=== PATIENT | female | born 1960 | race Caucasian/White ===

== ENCOUNTER 2020-06-27 13:21 | Day surgery (SDC) | payer MEDICAID, SELFPAY ==
--- NOTE | 2020-06-24 13:07 | P.CONAN_ITS ---
Documented by User: Miranda Pena 06/24/20 13:10 HPI - Anesthesia Eval Consult details Narrative: 59yo F for Upper Endoscopy with Balloon Dilatation [facility] Past Medical History Medical History (Updated 06/27/20 @ 13:34 by Tran Coppola, RN) Achalasia Anxiety Depression Gastritis GERD (gastroesophageal reflux disease) Hepatitis C Migraines Panic attacks SVT (supraventricular tachycardia) Surgical History Surgical History H/O cardiac radiofrequency ablation Social History Social History Smoking Status: Current every day smoker Use of substances other than those prescribed or required for medical reasons: No Have you been hit, kicked, punched, or otherwise hurt by someone within the past year? If so, by whom?: No Advance Directives: No Recently lost weight without trying: No Meds Allergies Allergy/AdvReac Type Severity Reaction Status Date / Time prochlorperazine Allergy Intermediate Muscle Pain Verified 06/27/20 13:30 [From Compazine] acetaminophen [Tylenol] Allergy Unknown Muscle Pain Verified 06/27/20 13:30 Combivent Allergy Intermediate Muscle Pain Uncoded 06/27/20 13:30 Exam Exam Date and Time: June 24, 2020 1307 Airway Adult Head Mouth w/Numbe Teeth: 1. Broken Assessment and Plan Assessment Anesthesia Assessment: Chart Reviewed Documented by User: Mack Quan MD 06/27/20 14:14 [facility] Past Medical History Medical History (Updated 06/27/20 @ 13:34 by Tran Coppola RN) Achalasia Anxiety Depression Gastritis GERD (gastroesophageal reflux disease) Hepatitis C Migraines Panic attacks SVT (supraventricular tachycardia) Surgical History Surgical History H/O cardiac radiofrequency ablation Social History Social History Smoking Status: Current every day smoker Use of substances other than those prescribed or required for medical reasons: No Have you been hit, kicked, punched, or otherwise hurt by someone within the past year? If so, by whom?: No Advance Directives: No Recently lost weight without trying: No Meds Allergies Allergy/AdvReac Type Severity Reaction Status Date / Time prochlorperazine Allergy Intermediate Muscle Pain Verified 06/27/20 13:30 [From Compazine] acetaminophen [Tylenol] Allergy Unknown Muscle Pain Verified 06/27/20 13:30 Combivent Allergy Intermediate Muscle Pain Uncoded 06/27/20 13:30 Exam Airway Mallampati Class: II TM Dist: >3cm Neck ROM: Full Partial: Upper Adult Head Mouth w/Numbe Teeth: 1. Broken Loose/Missing/Broken Teeth: Yes Heart: rrr Lungs: nl Other: ao Assessment and Plan Assessment Anesthesia Assessment: Anesthesia Plan Discussed and Chart Reviewed Final Anesthetic Review NPO: Yes ASA Class: III Final Preanesthetic Review: No Changes in Pt Med Stat, Meds/Allgs Chart Reviewed, Consent Obtained/Reviewed and Anes Risks/Benef Reviewed Patient Risk: Intermediate Procedure Risk: Intermediate Anesthetic Plan Anesthetic Plan: MAC: Disposition: Standard PACU
[2020-06-27 13:40] VITALS: BP 143/65; PULSE 68; RESP 18; TEMP 36.8; O2SAT 98; BMI 33.7
[2020-06-27 15:07] VITALS: BP 96/52; PULSE 73; RESP 20; TEMP 36.3; O2SAT 100
[2020-06-27 15:12] VITALS: BP 104/57; PULSE 63; RESP 20; O2SAT 100
--- NOTE | 2020-06-27 15:15 | PM.OP ---
Brief Operative Note Date of procedure: 06/27/20 Pre-op diagnosis: Achalasia, Dysphagia Post-op diagnosis: other (Same, R/O Head's, Dilated and atonic esophagus) Procedure: EGD with Balloon dilation of EG Junction and biopsies. Surgeon: Jefferson Ng Anesthesia: MAC Estimated blood loss (mL): 3.0 Pathology: other (A. EG Junction at 38cm) Condition: stable Disposition: PACU
[2020-06-27 15:28] VITALS: BP 120/69; PULSE 60; RESP 18; O2SAT 100
[2020-06-27] MEDS: Acetaminophen 325 MG TABLET 650 MG PO (15:31)
--- NOTE | 2020-06-27 15:33 | OP_ITS ---
SURGEON: Jefferson Ng MD INDICATIONS: The patient presents for evaluation of underlying history of achalasia, reflux, and dysphagia. Full consent has been obtained from her for this, including risks of bleeding and perforation. PREOPERATIVE DIAGNOSIS: POSTOPERATIVE DIAGNOSIS: PROCEDURE PERFORMED: Esophagogastroduodenoscopy with balloon dilation of gastroesophageal junction, and biopsies. ESTIMATED BLOOD LOSS: COMPLICATIONS: ANESTHESIA: Monitored anesthesia care. ASSISTANTS: SPECIMENS: PREOPERATIVE DIAGNOSES: History of achalasia, gastroesophageal reflux, and dysphagia. POSTOPERATIVE DIAGNOSES: History of achalasia, gastroesophageal reflux, and dysphagia, rule out Head's esophagus. DESCRIPTION OF PROCEDURE: The patient was placed in the left lateral decubitus position. The Olympus video gastroscope was passed in the posterior oropharynx and upper esophagus under direct vision. The esophagus was dilated, somewhat tortuous, and almost absent peristalsis. There was some fluid within the esophagus, but no food. This was suctioned and removed. The scope was advanced to the gastroesophageal junction at 38 cm. This was slightly irregular, but there was no esophagitis, mass, ulceration, nor any definitive stricture. The scope easily entered into the stomach. The scope was advanced to the pylorus and duodenum cannulated to the descending portion. The duodenum including the bulb appeared normal without mass or ulceration. The scope was withdrawn back in the stomach. The gastric antrum and body appeared normal with good peristalsis. The scope was retroflexed visualizing the proximal stomach carefully which appeared normal, without mass or ulceration. There was evidence of some probable component of a fundoplication. The scope was straightened out and withdrawn back into the esophagus. Given her symptomatology and history, I did use a [employer] incremental balloon to dilate the gastroesophageal junction from 18 to 20 mm at the recommended pressure for 60 seconds each. Post dilation, there was really no appreciable heme noted nor any effect on the gastroesophageal junction. I did obtain biopsies at the EG junction at 38 cm. The scope was slowly withdrawn assessing the esophagus. Again, the esophagus appeared somewhat dilated and atonic. There was no mucosal abnormalities. The scope was withdrawn from the patient. She tolerated the procedure well and was returned to the recovery area in stable condition. IMPRESSION: 1. Achalasia. 2. Dysphagia, status post balloon dilation. 3. Rule out Head's esophagus. PLAN: The results of biopsies will be checked. I do suspect the dilation today will not really have any appreciable effect on her symptoms. She has been advised to use pantoprazole 40 mg b.i.d. and had been given a prescription for that when I saw her for the recent office visit. She is scheduled for a barium swallow and will keep that appointment. She most likely will need referral either back to [facility] or to [facility] in [place] for further evaluation of the esophagus with motility studies and consideration of further treatment of the underlying achalasia and symptomatology. This has been discussed with her sister. Of note, she was advised to stay on a very careful soft diet and avoid things like rice and meat. MD ZULAY Dave/DESTINY / [id number]
== END 2020-06-27 23:59 | disposition home or self-care (01) ==
PROVIDERS: Internal Medicine; PCP Student in an Organized Health Care Education/Training Program; Visit Provider Internal Medicine Gastroenterology
PROC: (CPT 43249; principal; 2020-06-27 14:00)
DX: K22.0 Achalasia of cardia (principal); K21.00 Gastro-esophageal reflux disease with esophagitis, without bleeding; K20.80 Other esophagitis without bleeding; Z79.82 Long term (current) use of aspirin; Z79.899 Other long term (current) drug therapy
CPT/HCPCS: 43249; 43239; 88305; C1726

== ENCOUNTER 2020-09-09 10:03 | Outpatient (REF) | payer MEDICAID, SELFPAY ==
--- NOTE | 2020-09-09 10:09 | FL_ITS ---
EXAMINATION: FL BARIUM SWALLOW CLINICAL INFORMATION: Dysphagia COMPARISON: None TECHNIQUE: Barium swallow examination is performed using fluoroscopic evaluation in addition to multiple fluoroscopic spot views. The patient is imaged both upright and prone and using both thick and thin sulfate along with effervescent granules. A barium tablet was also administered. Fluoroscopy time: 1.6 minutes DAP: A8 Gycm2 Images: 50 FINDINGS: The swallowing mechanism is normal. No aspiration or penetration is seen. The esophagus is dilated. There is abnormal esophageal motility. There is some food debris seen in the mid and distal esophagus. There is a stricture of the distal esophagus at the GE junction. There is obstruction of the barium tablet seen in this region. No gastroesophageal reflux was seen. Visualized stomach and duodenum are unremarkable. FL/FL barium swallow IMPRESSION: Abnormal esophageal motility, dilated thoracic esophagus and stricture at the GE junction. There is obstruction of the barium tablet at the GE junction. This may represent achalasia. Malignancy at the GE junction cannot be excluded and endoscopic correlation is recommended.
== END 2020-09-09 10:04 | disposition home or self-care (01) ==
LOC: HO.XRAY 10:03
PROVIDERS: Visit Provider Internal Medicine
DX: K22.0 Achalasia of cardia (principal); R13.10 Dysphagia, unspecified
CPT/HCPCS: 74220

== ENCOUNTER 2020-10-17 08:49 | Day surgery (SDC) | payer MEDICAID, SELFPAY ==
[2020-09-19 09:11] VITALS: BMI 34.4
[2020-09-19 10:33] VITALS: BMI 34.4
--- NOTE | 2020-09-22 08:18 | HO.ANESPROP2 ---
Documented by User: Miranda Pena 09/22/20 08:20 HPI - Anesthesia Eval Consult details Narrative: 60yo F for Colonoscopy s/p EGD with MAC 06/27/20 [facility] Past Medical History Medical History Achalasia Anxiety Depression Gastritis GERD (gastroesophageal reflux disease) Hepatitis C Migraines Panic attacks Sleep apnea SVT (supraventricular tachycardia) Surgical History Surgical History H/O cardiac radiofrequency ablation History of esophagogastroduodenoscopy (EGD) Hx of cone biopsy of cervix Social History Social History Smoking Status: Current every day smoker Tobacco Type: Cigarette Cigarettes Per Day: 5 Years Smoked: 30 Meds Allergies Allergy/AdvReac Type Severity Reaction Status Date / Time prochlorperazine Allergy Intermediate Muscle Pain Verified 06/27/20 13:30 [From Compazine] acetaminophen [Tylenol] Allergy Unknown Muscle Pain Verified 06/27/20 13:30 Combivent Allergy Intermediate Muscle Pain Uncoded 06/27/20 13:30 Home Medications Medication Instructions Recorded Confirmed Type pantoprazole 40 mg PO BEDTIME 09/19/20 09/19/20 History pantoprazole 80 mg PO QAM 09/19/20 09/19/20 History Exam Exam Date and Time: September 22, 2020 0818 Height,Weight and Vital Signs: Height 5 ft 9 in Weight 105.687 kg Assessment and Plan Assessment Anesthesia Assessment: Chart Reviewed Documented by User: Heidi Hutchinson 09/23/20 08:34 [facility] Past Medical History Medical History Achalasia Anxiety Depression Gastritis GERD (gastroesophageal reflux disease) Hepatitis C Migraines Panic attacks Sleep apnea SVT (supraventricular tachycardia) Surgical History Surgical History H/O cardiac radiofrequency ablation History of esophagogastroduodenoscopy (EGD) Hx of cone biopsy of cervix Social History Social History Smoking Status: Current every day smoker Tobacco Type: Cigarette Cigarettes Per Day: 5 Years Smoked: 30 Meds Allergies Allergy/AdvReac Type Severity Reaction Status Date / Time prochlorperazine Allergy Intermediate Muscle Pain Verified 06/27/20 13:30 [From Compazine] acetaminophen [Tylenol] Allergy Unknown Muscle Pain Verified 06/27/20 13:30 Combivent Allergy Intermediate Muscle Pain Uncoded 06/27/20 13:30 Home Medications Medication Instructions Recorded Confirmed Type pantoprazole 40 mg PO BEDTIME 09/19/20 09/19/20 History pantoprazole 80 mg PO QAM 09/19/20 09/19/20 History
[2020-10-17 09:33] VITALS: BP 155/76; PULSE 68; RESP 16; TEMP 35.7; O2SAT 97; BMI 33.2
[2020-10-17] MEDS: Sodium Phosphate,Mono-Dibasic 133 ML ENEMA PR (10:26)
--- NOTE | 2020-10-17 11:53 | PM.OP ---
Brief Operative Note Date of Service: 10/17/20 Pre-op diagnosis: Screening Post-op diagnosis: other (Diverticulosis, Poor prep) Procedure: Colonoscopy to the cecum Surgeon: Jefferson Ng Anesthesia: MAC Estimated blood loss (mL): 0 Pathology: none sent Condition: stable Disposition: PACU
[2020-10-17 12:12] VITALS: BP 136/80; PULSE 64; RESP 16; TEMP 36.1; O2SAT 100
--- NOTE | 2020-10-17 12:13 | OP_ITS ---
SURGEON: Jefferson Ng MD INDICATIONS: The patient presents for evaluation of colorectal cancer screening. Full consent has been obtained from her for this, including risks of bleeding and perforation PREOPERATIVE DIAGNOSIS: Colorectal cancer screening. POSTOPERATIVE DIAGNOSIS: PROCEDURE PERFORMED: Colonoscopy to cecum. ESTIMATED BLOOD LOSS: COMPLICATIONS: ANESTHESIA: ASSISTANTS: SPECIMENS: POSTOPERATIVE DIAGNOSES: Colorectal cancer screening, diverticulosis, poor prep. DESCRIPTION OF PROCEDURE: The patient was placed in the left lateral decubitus position. The digital rectal exam revealed no abnormalities. The Olympus video pediatric colonoscope was entered into the rectum, advanced easily to the cecum. Once in the cecum, I did identify cecal pouch with appendiceal orifice and a normal-appearing ileocecal valve. There was transillumination of light deep in the right lower quadrant. However, the entire cecum was unfortunately coated with some stool. Portions of this were irrigated and washed away but a significant portion of the cecum was not well visualized. The scope was then slowly withdrawn assessing all mucosal surfaces carefully. Preparation was quite poor throughout the majority of the colon. Portions of the mucosa that I did see were normal. Clearly, lesions may have been missed. There was some diverticulosis noted in the sigmoid colon. In the rectum, scope was retroflexed visualizing portions of the rectum, which appeared normal, but other portions were obscured by the stool. The scope was withdrawn from the patient. She tolerated the procedure well and was returned to recovery area in stable condition. IMPRESSION: 1. Poor prep with very limited visualization. 2. Diverticulosis. PLAN: The patient is scheduled for a procedure for her achalasia later this year with Dr. Lees at [facility]. She will be seen in followup to see me for either summer or fall. At some point, she should obtain a Cologuard test from her primary care physician. If this is positive, we would need to repeat colonoscopy with a better prep. If she does not do a Cologuard test we can repeat the colonoscopy with a 2-day preparation. However at this point, we shall await the results of her upcoming procedure for the achalasia and then see her in followup, and then plan for a possible 2nd colonoscopy if need be. MD ZULAY Dave/DESTINY / [id number] [facility]
== END 2020-10-17 13:03 | disposition home or self-care (01) ==
PROVIDERS: PCP Student in an Organized Health Care Education/Training Program; Visit Provider Internal Medicine
PROC: 0DJD8ZZ Inspection of Lower Intestinal Tract, Via Natural or Artificial Opening Endoscopic (ICD-10-PCS; CPT 45378; principal; 2020-10-17 10:20)
DX: Z12.11 Encounter for screening for malignant neoplasm of colon (principal); K57.30 Diverticulosis of large intestine without perforation or abscess without bleeding; K22.0 Achalasia of cardia; Z98.890 Other specified postprocedural states; K59.00 Constipation, unspecified; K21.9 Gastro-esophageal reflux disease without esophagitis; B18.2 Chronic viral hepatitis C; F17.210 Nicotine dependence, cigarettes, uncomplicated; Z79.899 Other long term (current) drug therapy; Z79.82 Long term (current) use of aspirin
CPT/HCPCS: 45378; J2250; J2370

== ENCOUNTER 2021-06-16 07:55 | Day surgery (SDC) | payer MEDICARE, MEDICAID, SELFPAY ==
[2021-06-12 15:10] VITALS: BMI 34.1
[2021-06-16 08:34] VITALS: BMI 33.6
[2021-06-16 08:36] LABS: Glucose, Whole Blood 97 mg/dL (60-115)
--- NOTE | 2021-06-16 08:37 | P.CONAN_ITS ---
[facility] Past Medical History Medical History (Updated 06/15/21 @ 10:04 by Laura Mabry RN) Achalasia Anxiety Depression Diabetes Gastritis GERD (gastroesophageal reflux disease) Hepatitis C History of dysphagia Migraines Panic attacks Sleep apnea SVT (supraventricular tachycardia) Family History Family history of problems with anesthesia: No Surgical History Surgical History (Updated 06/12/21 @ 14:50 by Jacque Thomas RN) H/O cardiac radiofrequency ablation History of esophagogastroduodenoscopy (EGD) History of surgery Hx of colonoscopy Hx of cone biopsy of cervix History of Problems with Anesthesia: No Social History Social History Cigarettes Per Day: 5 Years Smoked: 30 Advance Directives: No Advance Directives Information Provided: Yes Meds Allergies Allergy/AdvReac Type Severity Reaction Status Date / Time prochlorperazine Allergy Intermediate Muscle Pain Verified 06/12/21 14:50 [From Compazine] acetaminophen [Tylenol] Allergy Unknown Muscle Pain Verified 06/12/21 14:50 Combivent Allergy Intermediate Muscle Pain Uncoded 06/12/21 14:50 Active Medications: Current Medications Sodium Biphosphate/Sodium Phosphate (Sodium Phosphate,Swisher-Dibasic 133 Ml Enema) 133 ml OK ONCE PRN PRN Reason: Poor Colonoscopy Prep Results Home Medications Medication Instructions Recorded Confirmed Last Taken Type pantoprazole 40 mg tablet,delayed 40 mg PO BEDTIME 09/19/20 06/12/21 Unknown History release pantoprazole 40 mg tablet,delayed 80 mg PO QAM 09/19/20 06/12/21 Unknown History release acetaminophen 500 mg tablet 1 tab PO Q8H PRN 06/12/21 06/12/21 Unknown History meclizine 25 mg tablet 1 tab PO DAILY PRN 06/12/21 06/12/21 Unknown History Exam Exam Date and Time: June 16, 2021 0837 Height,Weight and Vital Signs: Height 5 ft 9 in Weight 104.78 kg Pertinent Lab Results Pertinent Lab Results: Laboratory Tests 06/16/21 08:32 POC Glucose 97 Airway Mallampati Class: II TM Dist: >3cm Neck ROM: Full Partial: Upper and Lower Heart: rrr Lungs: cta Assessment and Plan Assessment Anesthesia Assessment: Anesthesia Plan Discussed and Chart Reviewed Final Anesthetic Review Family History of Problems with Anesthesia: No History of Problems with Anesthesia: No NPO: Yes ASA Class: III Final Preanesthetic Review: No Changes in Pt Med Stat, Meds/Allgs Chart Reviewed and Consent Obtained/Reviewed Patient Risk: Intermediate Procedure Risk: Intermediate Anesthetic Plan Anesthetic Plan: MAC: Disposition: Standard PACU
[2021-06-16 08:54] VITALS: BP 118/73; PULSE 57; RESP 16; TEMP 36.2; O2SAT 98
[2021-06-16] MEDS: Lactated Ringers 1,000 ML 100 ML IVCONT (09:13)
[2021-06-16 10:45] VITALS: BP 96/56; PULSE 63; RESP 16; TEMP 36.5; O2SAT 98
--- NOTE | 2021-06-16 10:51 | P.BOP_ITS ---
Brief Operative Note Date of Service: 06/16/21 Pre-op diagnosis: Screening Post-op diagnosis: other (Colon polyp) Procedure: Colonoscopy to the cecum and TI with cold snare polypectomy Surgeon: Jefferson Ng Anesthesia: MAC Was an Property Assessment Monitor used for this Procedure?: No Estimated blood loss (mL): 2.0 Pathology: other (A. Ascending colon polyp) Condition: stable Disposition: PACU
[2021-06-16 11:00] VITALS: BP 122/74; PULSE 62; RESP 16; TEMP 36.5; O2SAT 99
--- NOTE | 2021-06-16 12:35 | OP_ITS ---
SURGEON: Jefferson Ng MD INDICATIONS: The patient presents for evaluation of colorectal cancer screening. Full consent has been obtained from her for this, including risks of bleeding and perforation. PREOPERATIVE DIAGNOSIS: Colorectal cancer screening. POSTOPERATIVE DIAGNOSIS: PROCEDURE PERFORMED: Colonoscopy to cecum and terminal ileum with snare polypectomy. ESTIMATED BLOOD LOSS: COMPLICATIONS: ANESTHESIA: Monitored anesthesia care. ASSISTANTS: SPECIMENS: POSTOPERATIVE DIAGNOSES: Colorectal cancer screening, colon polyp, diverticulosis and internal hemorrhoids. DESCRIPTION OF PROCEDURE: The patient was placed in the left lateral decubitus position. The digital rectal exam revealed no abnormalities. The Olympus video pediatric colonoscope was entered into the rectum and advanced easily to the cecum. Once in the cecum, I did identify normal-appearing cecal pouch with appendiceal orifice and a normal-appearing ileocecal valve. The terminal ileum was cannulated and appeared normal. The scope was slowly withdrawn assessing all mucosal surfaces carefully. Preparation throughout the colon was definitely much better than the procedure earlier in the year after she did her 2-day prep for this procedure. However, there was still some solid stool in various parts of the colon. In the proximal ascending colon, was an approximately 5 or 6 mm polyp, which was snared and removed with a cold snare. There was no sign of any residual polyp nor bleeding. I did not visualize any other polyps, colitis, nor angiodysplasia. There was a mild amount of sigmoid diverticulosis. In the rectum, scope was retroflexed visualizing internal hemorrhoids, but no other pathology. The rectal mucosa appeared normal. The scope was straightened out and withdrawn from the patient. She tolerated the procedure well and was returned to the recovery area in stable condition. IMPRESSION: 1. Colon polyp, status post cold snare polypectomy. 2. Diverticulosis. 3. Internal hemorrhoids. PLAN: The results of the pathology will be checked. Even if it is not a tubular adenoma, I would recommend a followup colonoscopy in 5 years given the again somewhat limited prep. I would recommend a repeat upper endoscopy in 2 years given the underlying history of achalasia and her last upper endoscopy being in June of 2020. She will see me again on a p.r.n. basis. MD ZULAY Dave/DESTINY / [id number]
== END 2021-06-16 11:20 | disposition home or self-care (01) ==
PROVIDERS: PCP Student in an Organized Health Care Education/Training Program; Visit Provider Internal Medicine
PROC: 0DJD8ZZ Inspection of Lower Intestinal Tract, Via Natural or Artificial Opening Endoscopic (ICD-10-PCS; CPT 45378; principal; 2021-06-16 09:40)
DX: Z12.11 Encounter for screening for malignant neoplasm of colon (principal); D12.2 Benign neoplasm of ascending colon; K57.30 Diverticulosis of large intestine without perforation or abscess without bleeding; K64.8 Other hemorrhoids; K22.0 Achalasia of cardia; K21.9 Gastro-esophageal reflux disease without esophagitis; B18.2 Chronic viral hepatitis C; E11.9 Type 2 diabetes mellitus without complications; Z79.84 Long term (current) use of oral hypoglycemic drugs; Z79.899 Other long term (current) drug therapy; Z79.82 Long term (current) use of aspirin
CPT/HCPCS: 45385; 82947; 88305

== ENCOUNTER 2021-06-19 07:48 | Outpatient (REF) | payer MEDICARE, MEDICAID, SELFPAY ==
--- NOTE | ~2021-06-19 | US_ITS ---
EXAMINATION: US COMPLETE ABDOMEN WITH LIVER ELASTOGRAPHY CLINICAL INFORMATION: Chronic hepatitis C. COMPARISON: Abdominal ultrasound done on 02/09/2019. TECHNIQUE: Real-time imaging of the abdominal viscera. Noninvasive ultrasound liver fibrosis assessment is performed using Jarrod ElastPQ point quantification shear wave elastography (pSWE) with a C5-2 MHz transducer. Multiple elastography samples are obtained. FINDINGS: PANCREAS: The visualized pancreatic head and body are normal in appearance. The remainder of the pancreas is obscured from visualization by the overlying bowel gas. ABDOMINAL AORTA: The proximal, middle, and distal aortic segments are normal in caliber. INFERIOR VENA CAVA: Visualized portions are normal. LIVER: The liver demonstrates mild diffuse increased echotexture, consistent with diffuse liver disease likely secondary to hepatic steatosis, hepatocellular disease, or orthopedic or portal venous combination thereof. No focal lesion or intrahepatic biliary duct dilatation. The right lobe measures 17.3 cm in length. The left lobe measures 9.1 cm in length. Portal flow is towards the liver (hepatopedal). Shear wave liver elastography median stiffness is 1.54 m/s (reference: normal median stiffness is 1.3 m/s or less). IQR/median stiffness to assess sampling precision is 0.10 (reference: good quality data set is IQR/median stiffness of 0.15 or less). GALLBLADDER: Normal. The gallbladder is physiologically distended without evidence of stones, sludge, polyps, wall thickening or pericholecystic fluid. COMMON BILE DUCT: Normal in caliber measuring 0.3 cm in diameter. RIGHT KIDNEY: Normal. No hydronephrosis. No renal calculi or focal parenchymal lesions. The kidney measures 9.3 cm in maximum dimension. LEFT KIDNEY: No hydronephrosis. No renal calculi or focal parenchymal lesions. The kidney measures 10.9 cm in maximum dimension. Superimposed circumscribed focal echogenic lesion is identified within the mid lateral cortex, measures 1.0 x 1.1 x 1.0 cm, unchanged. 2018, most consistent with stable angiomyolipoma. SPLEEN: Normal. The spleen measures 10.0 cm in maximum dimension. FREE FLUID: None. US/US abdomen comp w elastography IMPRESSION: 1. Mild diffuse increased echotexture is present within the liver, consistent with diffuse liver disease without any sonographic evidence of superimposed focal liver lesion. 2. Stable approximately 1.1 cm maximum dimension echogenic solid mass within the mid lateral cortex of the left kidney, most stable angiomyolipoma, unchanged since 2018. 2. Liver elastography: In the absence of other known clinical signs, measurements rule out compensated advanced chronic liver disease. If there are known clinical signs, further testing may be needed for confirmation. REFERENCE: Society of Radiologists in Ultrasound Liver Stiffness Thresholds (2020): LIVER STIFFNESS THRESHOLDS: *Liver Stiffness equal or less than 1.3 m/s: High probability of being normal. *Liver Stiffness less than 1.7 m/s: In the absence of other known clinical signs, rules out compensated advanced chronic liver disease. *Liver Stiffness 1.7-2.1 m/s: Suggestive of compensated advanced chronic liver disease but need further test for confirmation. *Liver Stiffness over 2.1 m/s: Rules in compensated advanced chronic liver disease. *Liver Stiffness over 2.4 m/s: Suggestive of clinically significant portal hypertension. QUALITY OF DATA SET: *IQR/Median value equal or less than 0.15 implies a quality data set. *IQR/Median value over 0.15 implies a poor quality data set. SIGNIFICANT CHANGE FROM PRIOR EXAM: Significant change if liver stiffness measurement is 10% or greater from prior exam. OTHER CONSIDERATIONS: The stage of liver fibrosis may be overestimated in the setting of acute hepatitis, liver inflammation, elevated liver function tests, hepatic vascular congestion, obstructive cholestasis, non-fasting state, and infiltrative diseases such as amyloidosis and lymphoma. In some patients with NAFLD, the liver stiffness thresholds for compensated advanced chronic liver disease may be lower. In causes other than viral hepatitis and NAFLD, liver stiffness thresholds are not well established.
[2021-06-19 08:41] LABS: MANUAL DIFF FLAG NO
[2021-06-19 09:14] LABS: Basophils Percent Auto 0.6 % (0-2); Eosinophils Absolute Auto 0.2 X10*3/uL (0.0-0.4); Eosinophils Percent Auto 3.7 % (0-4); Hematocrit 39.7 % (37-47); Hemoglobin 12.8 g/dl (12.0-16.0); Imm Gran Abs Auto 0.01 X10*3/uL (0.00-0.03); Imm Gran Pct Auto 0.2 % (0.0-0.4); Lymphocytes Absolute Auto 2.4 X10*3/uL (1.2-4.9); Lymphocytes Percent Auto 47.3 % (20-40); Mean Corpuscular HGB Conc 32.2 g/dl (31.0-35.0); Mean Corpuscular Hemoglobin 28.2 pg (27.0-33.0); Mean Corpuscular Volume 87.4 fL (80-98); Monocytes Absolute Auto 0.4 X10*3/uL (0.1-1.2); Monocytes Percent Auto 8.2 % (2-11); Neutrophils Absolute Auto 2.1 X10*3/uL (2.0-8.3); Platelet Count 211 X10*3/uL (160-400); Red Blood Count 4.54 X10*6/uL (4.20-5.50); Red Cell Distribution Width 12.8 % (11.0-16.0); White Blood Count 5.1 X10*3/uL (4.8-10.8)
[2021-06-19 09:24] LABS: Prothrombin Time 11.7 SEC (9.9-13.0)
[2021-06-19 09:32] LABS: Alanine Aminotransferase 18 U/L (0-31); Albumin Level 3.9 g/dL (3.5-5.0); Alkaline Phosphatase 77 U/L (39-117); Aspartate Amino Transferase 18 U/L (5-31); Bilirubin Direct 0.2 mg/dL (0.0-0.5); Bilirubin Total 0.5 mg/dL (0.0-1.0); Total Protein 6.8 g/dL (6.5-8.0)
[2021-06-20 10:26] LABS: Alpha Fetoprotein 3.1 ng/mL
[2021-06-23 11:37] LABS: HCV Log PCR <1.18 NOT DETECTED Log IU/mL (NOT DETECTED); HepC Viral Load <15 NOT DETECTED IU/mL (NOT DETECTED)
[2021-06-24 16:21] LABS: FIB-ALT 17 U/L (6-29); FIB-Alpha-2-Macroglobulin 270 mg/dL (106-279); FIB-Apolipoprotein A1 119 mg/dL (101-198); FIB-GGT 17 U/L (3-70); FIB-Haptoglobin 76 mg/dL (43-212); FIB-Total Bilirubin 0.5 mg/dL (0.2-1.2); Liver Fibrosis Score 0.42; Liver Fibrosis Stage F1-F2; Nec Inflam Act Grade A0; Nec Inflam Act Score 0.07
== END 2021-06-19 07:49 | disposition home or self-care (01) ==
LOC: HO.US 07:48
PROVIDERS: PCP Student in an Organized Health Care Education/Training Program; Visit Provider Internal Medicine
DX: B18.2 Chronic viral hepatitis C (principal)
CPT/HCPCS: 36415; 76705; 76981; 80076; 81596; 82105; 85025; 85610; 87522

== ENCOUNTER 2022-01-01 16:38 | Emergency (ER) | payer MEDICARE, SELFPAY ==
--- NOTE | ~2022-01-01 | CT_ITS ---
EXAMINATION: CT HEAD WITHOUT CONTRAST CLINICAL INFORMATION: Headache. COMPARISON: None TECHNIQUE: Contiguous axial imaging was performed from the skull base to vertex without intravenous administration of contrast. Coronal and sagittal reformatted images are performed at CT scanner This CT examination was performed using dose optimization techniques as appropriate, variously including the following: *Automated exposure control *Adjustment of mA and/or kV according to patient size (this includes techniques or standardized protocols for targeted exams where dose is matched to indication/reason for exam; i.e. extremities or head) *Use of iterative reconstruction technique DLP: 680 mGy-cm FINDINGS: There is no evidence of acute intracranial hemorrhage or territorial infarction. No abnormal mass effect or midline shift is seen. [place] to white matter differentiation is well preserved. No extra-axial fluid collections are identified. The ventricles are normal in size. There is no abnormal attenuation within the brain parenchyma. The osseous structures and soft tissues are normal. The mastoid air cells and visualized portions of the paranasal sinuses are well aerated. CT/CT head/brain wo con IMPRESSION: No acute intracranial pathology.
[2022-01-01 19:35] VITALS: BP 147/69; PULSE 67; RESP 16; TEMP 36.6; O2SAT 99; BMI 31.0
[2022-01-01 20:42] LABS: MANUAL DIFF FLAG NO
[2022-01-01 20:44] LABS: Basophils Percent Auto 0.3 % (0-2); Eosinophils Absolute Auto 0.1 X10*3/uL (0.0-0.4); Eosinophils Percent Auto 2.3 % (0-4); Hematocrit 37.9 % (37.0-47.0); Hemoglobin 12.1 g/dl (12.0-16.0); Imm Gran Abs Auto 0.02 X10*3/uL (0.00-0.03); Imm Gran Pct Auto 0.3 % (0.0-0.4); Lymphocytes Absolute Auto 2.3 X10*3/uL (1.2-4.9); Lymphocytes Percent Auto 37.2 % (20-40); Mean Corpuscular HGB Conc 31.9 g/dl (31.0-35.0); Mean Corpuscular Volume 87.7 fL (80.0-98.0); Mean Platelet Volume 10.5 fL (9.4-12.3); Monocytes Absolute Auto 0.5 X10*3/uL (0.1-1.2); Monocytes Percent Auto 7.9 % (2-11); Neutrophils Absolute Auto 3.2 x10*3/uL (2.0-8.3); Platelet Count 204 X10*3/uL (160-400); Red Blood Count 4.32 X10*6/uL (4.20-5.50); Red Cell Distribution Width 13.8 % (11.0-16.0); White Blood Count 6.2 X10*3/uL (4.8-10.8)
[2022-01-01 21:06] LABS: Anion Gap 11 (12-20); Blood Urea Nitrogen 15 mg/dL (9-16); Carbon Dioxide 26 mmol/L (22-29); Chloride 111 mmol/L (96-108); Creatinine Clr Calc Pharmacy 77.4; Estimated Glomerular Filt Rate > 60; Glucose Random 105 mg/dL (60-115); Potassium 4.6 mmol/L (3.3-5.1); Sodium 143 mmol/L (135-145)
[2022-01-01 21:34] VITALS: BP 132/64; PULSE 64; RESP 16; TEMP 36.8; O2SAT 97
--- NOTE | 2022-01-01 22:57 | ED_ITS ---
HPI - General Adult General Chief complaint: General Medical Stated complaint: Head pressure/Dizziness Time Seen by Provider: 01/01/22 22:52 Source: patient Mode of arrival: ambulatory Limitations: no limitations History of Present Illness HPI narrative: Patient comes emergency room stating that approximately 12 hours ago, patient was trying to take a nap, all of a sudden it is unclear if she was dreaming or if she was awake, had a sudden sensation of ?an explosion inside her head? patient states that she open her eyes, so ?everything yellow? within a few seconds everything resolved. Patient denies headache, states that she feels tingly in her scalp, sometimes in the right, sometimes in the left, sometimes in the front and sometimes in the back. At this time patient has no headache. Related Data Home Medications Medication Instructions Recorded Confirmed pantoprazole 40 mg tablet,delayed 40 mg PO BEDTIME 09/19/20 06/12/21 release pantoprazole 40 mg tablet,delayed 80 mg PO QAM 09/19/20 06/12/21 release acetaminophen 500 mg tablet 1 tab PO Q8H PRN 06/12/21 06/12/21 meclizine 25 mg tablet 1 tab PO DAILY PRN 06/12/21 06/12/21 Allergies Allergy/AdvReac Type Severity Reaction Status Date / Time prochlorperazine AdvReac Unknown Verified 06/16/21 09:09 [From Compazine] [facility] [place] Past Medical History Medical History Achalasia Anxiety Depression Diabetes Gastritis GERD (gastroesophageal reflux disease) Hepatitis C History of dysphagia Migraines Panic attacks Sleep apnea SVT (supraventricular tachycardia) Surgical History H/O cardiac radiofrequency ablation History of esophagogastroduodenoscopy (EGD) History of surgery Hx of colonoscopy Hx of cone biopsy of cervix Social History Social History Patient Tobacco Use Status: Former Tobacco user Cigarettes Per Day: 5 Years Smoked: 30 Advance Directives: No Patient : No Physical Exam ED Vital Signs: Vital Signs - 24 hr 01/01/22 19:35 01/01/22 21:34 Temperature 97.9 F 98.2 F Pulse Rate 67 64 Respiratory Rate 16 16 Blood Pressure 147/69 H 132/64 Pulse Oximetry 99 97 BMI result Body Mass Index 31.0 Const Other: Appearance: Alert. Oriented X3. No acute distress. Eyes: Pupils equal, round and reactive to light. ENT: Pharynx normal. Neck: Normal inspection. Neck supple. No lymph nodes noted. No crepitus CVS: Normal heart rate and rhythm. Pulses normal. Normal S1 and S2 Respiratory: No respiratory distress. Breath sounds normal. No Wheezing. No rales Abdomen: Soft and nontender. No rigidity. No distention. Skin: Skin warm and dry. Normal skin color. Normal skin turgor. Extremities: No lower extremity edema. No Lacerations. No Rash Neuro: Oriented X 3. No motor deficit. No sensory deficit. Moving all extremities. No slurred speech. CN 2 through 12 grossly intact Psych: calm, cooperative, normal affect Course Course Course Narrative: I discussed with the patient the likely she was dreaming. Her stated complaints are not specific for aneurysms, or strokes. Patient is extremely anxious. Patient has history of panic attacks. I discussed with the patient that we will go ahead order a CT scan but she has no neurological deficits. Patient very g rateful about getting a head CT. Discussed the CT with the patient, no acute findings. Medical Decision Making Lab Data Result diagrams: 01/01/22 20:37 01/01/22 20:37 Labs: Lab Results 01/01/22 01/01/22 Range/Units 20:37 20:37 WBC 6.2 (4.8-10.8) X10*3/uL RBC 4.32 (4.20-5.50) X10*6/uL Hgb 12.1 (12.0-16.0) g/dl Hct 37.9 (37.0-47.0) % MCV 87.7 (80.0-98.0) fL MCH 28.0 (27.0-33.0) pg MCHC 31.9 (31.0-35.0) g/dl RDW 13.8 (11.0-16.0) % Plt Count 204 (160-400) X10*3/uL MPV 10.5 (9.4-12.3) fL Immature Gran % (Auto) 0.3 (0.0-0.4) % Neut % (Auto) 52.0 (45-73) % Lymph % (Auto) 37.2 (20-40) % [place] % (Auto) 7.9 (2-11) % Eos % (Auto) 2.3 (0-4) % Baso % (Auto) 0.3 (0-2) % Lymph # (Auto) 2.3 (1.2-4.9) X10*3/uL [place] # (Auto) 0.5 (0.1-1.2) X10*3/uL Eos # (Auto) 0.1 (0.0-0.4) X10*3/uL Baso # (Auto) 0.0 (0.0-0.2) X10*3/uL Abs Immat Gran (auto) 0.02 (0.00-0.03) X10*3/uL Absolute Neuts (auto) 3.2 (2.0-8.3) x10*3/uL Absolute Nucleated RBC 0.000 (0.0-0.012) X10*3/uL Nucleated RBC % (auto) 0.0 (0.0-0.2) /100WBC Sodium 143 (135-145) mmol/L Potassium 4.6 (3.3-5.1) mmol/L Chloride 111 H (96-108) mmol/L Carbon Dioxide 26 (22-29) mmol/L Anion Gap 11 L (12-20) BUN 15 (9-16) mg/dL Creatinine 0.95 (0.5-1.4) mg/dL Estim Creat Clear Calc 77.4 Estimated GFR > 60 Random Glucose 105 (60-115) mg/dL Calcium 9.0 (8.4-10.2) mg/dL Imaging Data CT scan - head: Radiologist's impression: There is no evidence of acute intracranial hemorrhage or territorial infarction. No abnormal mass effect or midline shift is seen. [place] to white matter differentiation is well preserved. No extra-axial fluid collections are identified. The ventricles are normal in size. There is no abnormal attenuation within the brain parenchyma. The osseous structures and soft tissues are normal. The mastoid air cells and visualized portions of the paranasal sinuses are well aerated. ? CT/CT head/brain wo con IMPRESSION: No acute intracranial pathology. Discharge Plan Discharge Clinical Impression: Head ache Patient Disposition: Home, Self-Care Instructions: Acute Headache (DC) Additional Instructions: Please follow-up with your primary care physician tomorrow. If you have any worsening or new symptoms, please return to the emergency room or call 911 Prescriptions: No Action pantoprazole 40 mg Tablet,Delayed Release (Dr/Ec) 80 mg PO QAM 0RF pantoprazole 40 mg Tablet,Delayed Release (Dr/Ec) 40 mg PO BEDTIME 0RF acetaminophen 500 mg tablet 1 tab PO Q8H PRN (Reason: Pain) 0RF meclizine 25 mg tablet 1 tab PO DAILY PRN (Reason: Dizziness) 0RF Interventions: LWBS Worksheet Last Done: 01/01/22 18:27
--- NOTE | 2022-01-01 23:01 | ECG_ITS ---
Test Reason : CHEST PAIN Blood Pressure : / mmHG Vent. Rate : 065 BPM Atrial Rate : 065 BPM P-R Int : 228 ms QRS Dur : 086 ms QT Int : 416 ms P-R-T Axes : 047 037 033 degrees QTc Int : 432 ms Sinus rhythm with 1st degree A-V block Otherwise normal ECG When compared with ECG of 29-JUN-2007 15:28, ND interval has increased T wave amplitude has decreased in Anterior leads Referred By: India Corley Electronically Signed By:ADONIS FAY MD
[2022-01-02 00:04] VITALS: BP 145/78; PULSE 65; RESP 16; TEMP 36.4; O2SAT 97
== END 2022-01-02 00:11 | disposition home or self-care (01) ==
PROVIDERS: Emergency Medicine; Emergency Provider Emergency Medicine; PCP Student in an Organized Health Care Education/Training Program
DX: R51.9 Headache, unspecified (principal); F41.9 Anxiety disorder, unspecified; E11.9 Type 2 diabetes mellitus without complications
CPT/HCPCS: 36415; 70450; 80048; 85025; 93005; 99284

== ENCOUNTER → 2022-02-21 14:46 | Outpatient (BNVA) | payer MEDICARE, SELFPAY | PROVIDERS: PCP Student in an Organized Health Care Education/Training Program; Visit Provider Surgery | DX: R10.11 Right upper quadrant pain (principal); K22.0 Achalasia of cardia; F32.9 Major depressive disorder, single episode, unspecified; E11.9 Type 2 diabetes mellitus without complications; K29.70 Gastritis, unspecified, without bleeding; K21.9 Gastro-esophageal reflux disease without esophagitis | CPT/HCPCS: 99202 ==

== ENCOUNTER 2022-03-01 09:11 | Outpatient (REF) | payer MEDICARE, MEDICAID, SELFPAY ==
--- NOTE | ~2022-03-01 | US_ITS ---
EXAMINATION: US ABDOMEN COMPLETE CLINICAL INFORMATION: Right upper quadrant pain. COMPARISON: Ultrasound abdomen complete 06/19/2021 and 02/09/2019. TECHNIQUE: Real-time imaging of the abdominal viscera. FINDINGS: PANCREAS: Normal. ABDOMINAL AORTA: The proximal, mid, and distal segments are normal in caliber. INFERIOR VENA CAVA: Visualized portions are normal. LIVER: The liver is normal in size. The liver contour is normal. The liver shows increased echogenicity. No focal hepatic lesion. There is no intrahepatic biliary duct dilatation seen. GALLBLADDER: The gallbladder is physiologically distended. Multiple mobile gallstones are present. No evidence of gallbladder wall thickening or pericholecystic fluid. COMMON BILE DUCT: Normal in caliber measuring 0.5 cm in diameter. RIGHT KIDNEY: Normal. No hydronephrosis. No renal calculi or focal parenchymal lesions. The kidney measures 12.1 cm in maximum dimension. LEFT KIDNEY: Previously visualized AML is not seen at this time. However, evaluation of left kidney is limited by anterior approach. No hydronephrosis. No renal calculi or focal parenchymal lesions. The kidney measures 11.2 cm in maximum dimension. SPLEEN: Normal. The spleen measures 9.9 cm in maximum dimension. FREE FLUID: None. US/US abdomen complete IMPRESSION: Hepatic steatosis without focal lesion. Cholelithiasis without wall thickening. Left renal AML is not visualized.
[2022-03-01 11:57] LABS: Alanine Aminotransferase 17 U/L (0-31); Alkaline Phosphatase 81 U/L (39-117); Aspartate Amino Transferase 18 U/L (5-31); Bilirubin Direct 0.2 mg/dL (0.0-0.5); Bilirubin Total 0.4 mg/dL (0.0-1.0)
== END 2022-03-01 09:12 | disposition home or self-care (01) ==
LOC: HO.US 09:11
PROVIDERS: Visit Provider Internal Medicine
DX: R10.11 Right upper quadrant pain (principal); K80.20 Calculus of gallbladder without cholecystitis without obstruction
CPT/HCPCS: 36415; 76700; 80076

== ENCOUNTER → 2022-03-15 13:07 | Outpatient (BNVA) | payer MEDICARE, MEDICAID, SELFPAY | PROVIDERS: PCP Student in an Organized Health Care Education/Training Program; Visit Provider Surgery | DX: K80.20 Calculus of gallbladder without cholecystitis without obstruction (principal); R10.11 Right upper quadrant pain | CPT/HCPCS: 99212 ==

== ENCOUNTER → 2022-04-02 10:48 | Outpatient (REF) | payer MEDICARE, MEDICAID, SELFPAY ==
--- NOTE | ~2022-04-02 | NM_ITS ---
EXAMINATION: NM BILIARY TRACT WITH ORAL FATTY MEAL CLINICAL INFORMATION: Right upper quadrant pain, cholelithiasis. COMPARISON: No previous biliary scan is available for comparison. Abdominal ultrasound dated 03/01/2022 is available for comparison. TECHNIQUE: Serial gamma scintillation camera images were obtained over the abdomen for a total observation period of 125 minutes following the intravenous administration of 5.0 mCi Tc-99m Mebrofenin. FINDINGS: There is good concentration of activity in the liver by 5 minutes post injection. Biliary activity is visualized by 10 minutes. The gallbladder is well visualized by 50 minutes. Small bowel is well visualized by 20 minutes. At 65 minutes post Mebrofenin injection, 8 ounces of Ensure-plus Brand was administered orally and an additional 60 minutes of images were obtained. There is good emptying of the gallbladder following ingestion of the fatty meal. At the end of the study there is good clearance of activity from the liver and visualization of diffuse small bowel activity. The calculated gallbladder ejection fraction is 56% (normal gallbladder ejection fraction using Ensure supplement orally is greater than 33%). NM/NM hepatobiliary wo pharm IMPRESSION: Visualization of the gallbladder is evidence of a patent cystic duct and strong evidence against the diagnosis of acute cholecystitis. The common bile duct is patent. Gallbladder emptying and ejection fraction are normal. Liver function appears normal.
== END ==
LOC: HO.NUCMED 10:48
PROVIDERS: Absent Provider Internal Medicine; PCP Student in an Organized Health Care Education/Training Program; Visit Provider Surgery
DX: R10.11 Right upper quadrant pain (principal); K80.20 Calculus of gallbladder without cholecystitis without obstruction
CPT/HCPCS: 78226; A9537

== ENCOUNTER → 2022-04-11 13:29 | Outpatient (BNVA) | payer OTHER, MEDICARE, MEDICAID, SELFPAY | PROVIDERS: PCP Student in an Organized Health Care Education/Training Program; Visit Provider Surgery | DX: K80.50 Calculus of bile duct without cholangitis or cholecystitis without obstruction (principal); R10.11 Right upper quadrant pain | CPT/HCPCS: 99212 ==

== ENCOUNTER → 2022-05-09 13:26 | Outpatient (BNVA) | payer MEDICARE, MEDICAID, SELFPAY | PROVIDERS: PCP Student in an Organized Health Care Education/Training Program; Visit Provider Surgery | DX: K80.50 Calculus of bile duct without cholangitis or cholecystitis without obstruction (principal); K80.20 Calculus of gallbladder without cholecystitis without obstruction; G47.30 Sleep apnea, unspecified; R00.1 Bradycardia, unspecified | CPT/HCPCS: 99212 ==

== ENCOUNTER 2023-05-03 17:44 | Outpatient (REF) | payer MEDICARE, MEDICAID, SELFPAY | END 2023-05-03 17:45 | disposition home or self-care (01) | LOC: HO.LNP 17:44 | PROVIDERS: Visit Provider Registered Nurse | DX: N30.01 Acute cystitis with hematuria (principal) | CPT/HCPCS: 87086; 87088; 87186 ==

== ENCOUNTER 2023-05-27 | Outpatient (REF) | payer MEDICARE, MEDICAID, SELFPAY | END 2023-05-27 00:01 | disposition home or self-care (01) | LOC: HO.HHCLNP | PROVIDERS: Visit Provider Nurse Practitioner Family | DX: R10.2 Pelvic and perineal pain (principal) | CPT/HCPCS: 87086; 87088; 87186; 87480; 87510; 87660 ==

== ENCOUNTER 2023-08-13 20:15 | Outpatient (REF) | payer MEDICARE, MEDICAID, SELFPAY ==
--- NOTE | ~2023-08-13 | MR_ITS ---
EXAMINATION: MR KNEE WITHOUT CONTRAST, RIGHT CLINICAL INFORMATION: Right knee pain, swelling, numbness, lump/mass. Posterior lump. Pain and swelling. COMPARISON: None available. TECHNIQUE: MRI of the knee without contrast was performed using routine sequences on a high-field scanner. FINDINGS: MENISCI: Medial Meniscus: Significant attenuation and irregularity of the posterior horn and root, consistent with a near-complete tear measuring up to 1.5 cm in ML dimension. Medial extrusion of the meniscal body with oblique inner margin/tibial articular surface tearing involving the meniscal body and medial aspect of the posterior horn. Inferiorly displaced meniscal flap within the medial meniscotibial recess measuring up to 1.8 cm in AP dimension. Adjacent soft tissue edema. Lateral Meniscus: Intact LIGAMENTS: Cruciate: Intact Collateral: Intact EXTENSOR MECHANISM: Intact quadriceps tendon. Mild proximal patellar tendinosis. Normal patellofemoral alignment. ARTICULAR CARTILAGE/BONE: Patellofemoral Compartment: Diffuse patellar articular cartilage thinning and signal heterogeneity with areas of full-thickness loss superiorly where there is mild subchondral cystic change. Trochlear signal heterogeneity. Small marginal osteophytes. Medial Compartment: Weight-bearing medial femoral condyle and medial tibial plateau full-thickness articular cartilage loss with mild subchondral cystic change and small marginal osteophytes. Lateral Compartment: Lateral femoral condyle articular cartilage signal heterogeneity and surface irregularity. Posterior nonweight-bearing signal heterogeneity. Tiny marginal osteophytes. JOINT FLUID AND BURSAE: Ksubg-ai-safbbhzo joint effusion and moderate Rachel's cyst. Mild synovitis. Edema inferior to the Rachel's cyst extending within the fascial plane, consistent with leak or rupture. MR/MR knee RT wo con IMPRESSION: 1. Near-complete tear of the medial meniscus posterior horn and root measuring 1.5 cm in ML dimension. Medial extrusion of the meniscal body with oblique inner margin/tibial articular surface tearing of the meniscal body and medial aspect of the posterior horn. Inferiorly displaced meniscal flap within the medial meniscotibial recess measuring up to 1.8 cm. Adjacent soft tissue edema. 2. Mild proximal patellar tendinosis. 3. Moderate medial as well as mild patellofemoral and lateral compartment osteoarthritis. Jxruc-eo-avrcdkse joint effusion and moderate Rachel's cyst with mild synovitis. Edema inferior to the Rachel's cyst, consistent with leak or rupture.
== END 2023-08-13 20:16 | disposition home or self-care (01) ==
LOC: HO.MRI 20:15
PROVIDERS: PCP Student in an Organized Health Care Education/Training Program; Visit Provider Student in an Organized Health Care Education/Training Program
DX: M25.561 Pain in right knee (principal)
CPT/HCPCS: 73721

== ENCOUNTER 2023-09-26 09:59 | Outpatient (REF) | payer MEDICARE, SELFPAY | END 2023-09-26 10:00 | disposition home or self-care (01) | LOC: HO.HOSX 09:59 | PROVIDERS: Visit Provider Orthopaedic Surgery | DX: Z13.89 Encounter for screening for other disorder (principal) ==

== ENCOUNTER 2023-10-10 07:40 | Outpatient (REF) | payer MEDICARE, SELFPAY ==
--- NOTE | ~2023-10-10 | XR_ITS ---
EXAMINATION: XR KNEE, RIGHT CLINICAL INFORMATION: Pain. COMPARISON: MRI right knee dated 08/13/2023. TECHNIQUE: AP, lateral and sunrise views of the right knee are submitted. FINDINGS: Bony alignment and mineralization are normal. The lateral, medial and patellofemoral joint space compartments are well-maintained. There is mild peripheral osteophyte formation of the medial and patellofemoral compartments. No fracture, dislocation or significant joint effusion is seen. There is no foreign body. XR/XR knee RT 3V IMPRESSION: 1. There is mild osteoarthritic change of the medial and patellofemoral joint space compartments. 2. No right knee fracture, dislocation or significant joint effusion is seen
== END 2023-10-10 07:41 | disposition home or self-care (01) ==
LOC: HO.HOSX 07:40
PROVIDERS: Visit Provider Orthopaedic Surgery
DX: M17.11 Unilateral primary osteoarthritis, right knee (principal); Z79.899 Other long term (current) drug therapy
CPT/HCPCS: 73562; 99202

== ENCOUNTER 2023-10-10 14:02 | Outpatient (AMB) | payer MEDICARE, MEDICAID, SELFPAY ==
--- NOTE | 2023-10-10 14:04 | A.OFFVIS_ITS ---
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 The patient states that she 1st injured her knee approximately 6 months ago. The patient felt a ?pop? in her knee while walking and fell to the ground. The patient denies any other injuries. She has tried Tylenol and anti-inflammatory medicines which gave her minimal relief. She has also done physical therapy exercises which aggravated her pain. She states that her right knee will give out several times per day. The patient thinks that she had an MRI of her right knee at [facility]. Allergies prochlorperazine [From Compazine] Adverse Reaction (Verified 10/10/23 14:17) Unknown Medication List - Last Reconciled 10/11/23 by Seth Blackwell MD acetaminophen 1 tab PO Q8H PRN acetaminophen mg PO atorvastatin 80 mg PO DAILY clopidogrel 75 mg PO QAM fluticasone propionate 50 mcg/actuation 1 - 2 sprays intranasal BID lorazepam 0.5 mg PO DAILY PRN meclizine 1 tab PO DAILY PRN nirmatrelvir-ritonavir 300 mg (150 mg x 2)-100 mg (Paxlovid) ea PO pantoprazole 80 mg PO QAM pantoprazole 40 mg PO BEDTIME PFSH Medical History (Updated 09/25/23 @ 12:36 by Seth Blackwell MD) Diabetes History of dysphagia Sleep apnea SVT (supraventricular tachycardia) Gastritis GERD (gastroesophageal reflux disease) Hepatitis C Achalasia Panic attacks Migraines Depression Anxiety Surgical History (Updated 10/10/23 @ 14:20 by Raina Russo CMA) Hx of cholecystectomy (~09/2023) History of surgery Hx of colonoscopy Hx of cone biopsy of cervix History of esophagogastroduodenoscopy (EGD) H/O cardiac radiofrequency ablation Family History Mother Cancer of unknown origin Maternal Uncle Cancer of unknown origin Social History Alcohol intake: current Alcohol intake frequency: holidays/special occasions only Patient Tobacco Use Status: Former Tobacco user Cigarettes Per Day: 5 Years Smoked: 30 Physical Exam Vital Signs: BMI result Body Mass Index 32.5 Const Other: Well-nourished well-developed very friendly female awake alert and oriented x3 in no acute distress Extrem Other: Bilateral lower extremity examination shows good capillary refill, no skin lesions noted, normal sensation light touch Right knee examination shows a minimal effusion, minimal crepitus with range of motion, tenderness along her medial joint line, positive Tatianna's test, no instability Results Reviewed Results Reviewed: Standing full weight-bearing x-rays of the patient's right knee show minimal joint space narrowing, no acute bony abnormalities Assessment & Plan Assessment & Plan (1) Right knee pain: Code(s): M25.561 - Pain in right knee Plan Ms. Barker presents with progressively worsening right knee pain mostly a tear of her medial meniscus. I will see whether or not the patient has already had an MRI. If she has not I will order an MRI of her right knee to further evaluate the status of her medial meniscus. I will see her back once the MRI results are available to discuss the findings and treatment options. She will continue with activity modifications in the meantime. Feel free to call me at any time should questions regarding her orthopedic management arise. Thank you very much for asking me to see this very friendly patient. I spent 22 minutes in reviewing the patient's records and imaging studies, seeing the patient and documenting in the medical record. Orders: Orders XR knee RT 3V 09/26/23 M25.561 - Pain in right knee XR knee RT 3V 10/10/23 M25.561 - Pain in right knee Coding Level of Care Code New Pt Level 2 (67501) Diagnoses Right knee pain M25.561
[2023-10-10 14:14] VITALS: BMI 32.5
== END 2023-10-10 14:32 | disposition home or self-care (01) ==
PROVIDERS: PCP Student in an Organized Health Care Education/Training Program; Visit Provider Orthopaedic Surgery
DX: M25.561 Pain in right knee (principal)
CPT/HCPCS: 99202

== ENCOUNTER 2023-10-23 09:37 | Outpatient (REF) | payer MEDICARE, SELFPAY ==
[2023-10-23 17:59] LABS: Alanine Aminotransferase 27 U/L (0-31); Alkaline Phosphatase 89 U/L (39-117); Anion Gap 13 (12-20); Aspartate Amino Transferase 23 U/L (5-31); Bilirubin Direct 0.2 mg/dL (0.0-0.5); Bilirubin Total 0.5 mg/dL (0.0-1.0); Blood Urea Nitrogen 12 mg/dL (9-16); Calcium 9.1 mg/dL (8.4-10.2); Carbon Dioxide 26 mmol/L (22-29); Chloride 105 mmol/L (96-108); Cholesterol 148 mg/dL (<200); Estimated Glomerular Filt Rate 60; Glucose Random 111 mg/dL (60-115); HDL Cholesterol 45 mg/dL (>40); LDL Cholesterol Calculated 89 mg/dL (<100); Potassium 3.8 mmol/L (3.3-5.1); Sodium 140 mmol/L (135-145); Total Protein 7.5 g/dL (6.5-8.0); Triglycerides 74 mg/dL (<150)
== END 2023-10-23 09:38 | disposition home or self-care (01) ==
LOC: HO.CHCLDS 09:37
PROVIDERS: Visit Provider Student in an Organized Health Care Education/Training Program
DX: I10 Essential (primary) hypertension (principal)
CPT/HCPCS: 36415; 80048; 80061; 80076

== ENCOUNTER 2024-05-27 08:27 | Outpatient (REF) | payer MEDICARE, SELFPAY ==
--- NOTE | ~2024-05-27 | US_ITS ---
EXAMINATION: US COMPLETE ABDOMEN WITH LIVER ELASTOGRAPHY CLINICAL INFORMATION: Right upper quadrant pain with chronic hepatitis. COMPARISON: Ultrasound 03/01/2021, liver elastoplasty 06/19/2021. TECHNIQUE: Real-time imaging of the abdominal viscera. Noninvasive ultrasound liver fibrosis assessment is performed using Jarrod ElastPQ point quantification shear wave elastography (pSWE) with a C5-2 MHz transducer. Multiple elastography samples are obtained. FINDINGS: PANCREAS: The visualized pancreatic head and body are normal in appearance. The remainder of the pancreas is obscured from visualization by the overlying bowel gas. ABDOMINAL AORTA: The proximal, middle, and distal aortic segments are normal in caliber. INFERIOR VENA CAVA: Visualized portions are normal. LIVER: The liver demonstrates increased echogenicity consistent with hepatic steatosis. No focal lesion or intrahepatic biliary duct dilatation. The right lobe measures 15.3 cm in length. The left lobe measures 9.3 cm in length. Portal flow is towards the liver (hepatopetal). Shear wave liver elastography median stiffness is 1.62 m/s (reference: normal median stiffness is 1.3 m/s or less). IQR/median stiffness to assess sampling precision is 0.17 (reference: good quality data set is IQR/median stiffness of 0.15 or less). GALLBLADDER: Status post cholecystectomy. COMMON BILE DUCT: Normal in caliber measuring 0.4 cm in diameter. RIGHT KIDNEY: Normal. No hydronephrosis. No renal calculi or focal parenchymal lesions. The kidney measures 10.5 cm in maximum dimension. LEFT KIDNEY: No hydronephrosis. There is an unchanged echogenic cortical mass measuring 1 cm in size with appearances compatible with a benign angiomyolipoma. Similar findings have been seen on older imaging dating back to at least 2019. No renal calculi or additional focal parenchymal lesions. The kidney measures 10.8 cm in maximum dimension. SPLEEN: Normal. The spleen measures 10.3 cm in maximum dimension. FREE FLUID: None. US/US abdomen comp w elastography IMPRESSION: 1. Echogenic liver consistent with hepatic steatosis. 2. 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 Unchanged when compared to 2019. No further followup should be necessary. 2. Liver elastography: Although measurements appear to rule out compensated advanced chronic liver disease, there is statistical variability of the sampling which decreases accuracy. REFERENCE: Society of Radiologists in Ultrasound Liver Stiffness Thresholds (2020): LIVER STIFFNESS THRESHOLDS: *Liver Stiffness equal or less than 1.3 m/s: High probability of being normal. *Liver Stiffness less than 1.7 m/s: In the absence of other known clinical signs, rules out compensated advanced chronic liver disease. *Liver Stiffness 1.7-2.1 m/s: Suggestive of compensated advanced chronic liver disease but need further test for confirmation. *Liver Stiffness over 2.1 m/s: Rules in compensated advanced chronic liver disease. *Liver Stiffness over 2.4 m/s: Suggestive of clinically significant portal hypertension. QUALITY OF DATA SET: *IQR/Median value equal or less than 0.15 implies a quality data set. *IQR/Median value over 0.15 implies a poor quality data set. SIGNIFICANT CHANGE FROM PRIOR EXAM: Significant change if liver stiffness measurement is 10% or greater from prior exam. OTHER CONSIDERATIONS: The stage of liver fibrosis may be overestimated in the setting of acute hepatitis, liver inflammation, elevated liver function tests, hepatic vascular congestion, obstructive cholestasis, non-fasting state, and infiltrative diseases such as amyloidosis and lymphoma. In some patients with NAFLD, the liver stiffness thresholds for compensated advanced chronic liver disease may be lower. In causes other than viral hepatitis and NAFLD, liver stiffness thresholds are not well established. Electronically signed by: Derrek Farooq MD 07/09/2024 02:22 PM [facility]
[2024-05-27 09:47] LABS: MANUAL DIFF FLAG NO
[2024-05-27 10:27] LABS: Basophils Absolute Auto 0.1 X10*3/uL (0.0-0.2); Basophils Percent Auto 1.1 % (0-2); Eosinophils Absolute Auto 0.2 X10*3/uL (0.0-0.4); Eosinophils Percent Auto 5.1 % (0-4); Hematocrit 39.6 % (37.0-47.0); Hemoglobin 12.6 g/dl (12.0-16.0); Imm Gran Abs Auto 0.01 X10*3/uL (0.00-0.03); Imm Gran Pct Auto 0.2 % (0.0-0.4); Lymphocytes Absolute Auto 1.7 X10*3/uL (1.2-4.9); Lymphocytes Percent Auto 37.1 % (20-40); Mean Corpuscular HGB Conc 31.8 g/dl (31.0-35.0); Mean Corpuscular Hemoglobin 27.6 pg (27.0-33.0); Mean Corpuscular Volume 86.7 fL (80.0-98.0); Mean Platelet Volume 11.2 fL (9.4-12.3); Monocytes Absolute Auto 0.4 X10*3/uL (0.1-1.2); Monocytes Percent Auto 8.7 % (2-11); Neutrophils Absolute Auto 2.1 x10*3/uL (2.0-8.3); Neutrophils Percent Auto 47.8 % (45-73); Platelet Count 205 X10*3/uL (160-400); Red Blood Count 4.57 X10*6/uL (4.20-5.50); Red Cell Distribution Width 13.9 % (11.0-16.0); White Blood Count 4.5 X10*3/uL (4.8-10.8)
[2024-05-27 10:47] LABS: Prothrombin Time 11.5 SEC (10.9-12.4)
[2024-05-27 10:49] LABS: Alanine Aminotransferase 37 U/L (0-31); Albumin Level 3.9 g/dL (3.5-5.0); Alkaline Phosphatase 79 U/L (39-117); Aspartate Amino Transferase 26 U/L (5-31); Bilirubin Direct 0.3 mg/dL (0.0-0.5); Bilirubin Total 0.7 mg/dL (0.0-1.0); Total Protein 7.3 g/dL (6.5-8.0)
[2024-05-28 13:48] LABS: HCV Log PCR <1.18 NOT DETECTED Log IU/mL (NOT DETECTED); HepC Viral Load <15 NOT DETECTED IU/mL (NOT DETECTED)
[2024-05-29 13:03] LABS: Alpha Fetoprotein 2.8 ng/mL
[2024-06-05 02:14] LABS: FIB-ALT 31 U/L (6-29); FIB-Alpha-2-Macroglobulin 291 mg/dL (106-279); FIB-Apolipoprotein A1 142 mg/dL (101-198); FIB-GGT 17 U/L (3-65); FIB-Haptoglobin 73 mg/dL (43-212); FIB-Total Bilirubin 0.5 mg/dL (0.2-1.2); Liver Fibrosis Score 0.42; Liver Fibrosis Stage F1-F2; Nec Inflam Act Grade A0-A1; Nec Inflam Act Score 0.18; Reference ID 5146244
== END 2024-05-27 08:28 | disposition home or self-care (01) ==
LOC: HO.US 08:27
PROVIDERS: PCP Student in an Organized Health Care Education/Training Program; Visit Provider Internal Medicine
DX: R10.11 Right upper quadrant pain (principal); Z87.19 Personal history of other diseases of the digestive system
CPT/HCPCS: 36415; 76700; 76981; 80076; 81596; 82105; 85025; 85610; 87522

== ENCOUNTER 2024-09-18 10:26 | Day surgery (SDC) | payer MEDICARE, SELFPAY ==
--- NOTE | 2024-09-17 09:52 | HO.ANESPROP2 ---
Documented by User: Miranda Pena NP 09/17/24 10:01 HPI - Anesthesia Eval Consult details Narrative: 64yo F for Upper Endoscopy Follows [facility] Cardiology for hx NSTEMI 07/2022: possible spontaneous coronary dissection leading to non-ST elevation OH.? She had cardiac catheterization by us on August 16 of last year.? It showed 100% occlusion of first diagonal branch with CRISTI 0 flow.? Otherwise she had normal left main and mild diffuse disease of LCx and RCA and minimal disease in LAD Stable at 07/2024 office visit [facility] Active Problems Active Problems: All Active Problems Right knee pain (Acute) Bradycardia (Acute) Sleep apnea (Acute) Biliary colic (Acute) Cholelithiasis (Acute) Intermittent right upper quadrant abdominal pain (Acute) Past Medical History Medical History Pre-diabetes History of dysphagia Sleep apnea SVT (supraventricular tachycardia) Gastritis GERD (gastroesophageal reflux disease) Hepatitis C Achalasia Panic attacks Migraines Depression Anxiety Family History Family History Mother Cancer of unknown origin Maternal Uncle Cancer of unknown origin Family history of problems with anesthesia: No Surgical History Surgical History Hx of cholecystectomy (~09/2023) History of surgery Hx of colonoscopy Hx of cone biopsy of cervix History of esophagogastroduodenoscopy (EGD) H/O cardiac radiofrequency ablation History of Problems with Anesthesia: No Social History Social History Alcohol intake: current Alcohol intake frequency: does not drink Patient Tobacco Use Status: Former Tobacco user Cigarettes Per Day: 5 Years Smoked: 30 Have you been hit, kicked, punched, or otherwise hurt by someone within the past year? If so, by whom?: No Are you DNR?: No Advance Directives: No Advance Directives Information Provided: Yes Meds Allergies Allergy/AdvReac Type Severity Reaction Status Date / Time prochlorperazine AdvReac Unknown Verified 10/10/23 14:17 [From Compazine] Home Medications ?Medication ?Instructions ?Recorded ?Confirmed ?Last Taken ?Type pantoprazole 40 mg tablet,delayed 40 mg PO BEDTIME 09/19/20 09/18/24 09/17/24 History release acetaminophen 500 mg tablet 1 tab PO Q8H PRN Pain 06/12/21 09/18/24 09/11/24 History meclizine 25 mg tablet 1 tab PO DAILY PRN Dizziness 06/12/21 09/18/24 07/18/24 History atorvastatin 80 mg tablet 80 mg PO DAILY 10/10/23 09/18/24 09/16/24 History fluticasone propionate 50 1 - 2 spray intranasal BID 10/10/23 09/18/24 09/15/24 History mcg/actuation nasal spray,suspension lorazepam 0.5 mg tablet 0.5 mg PO DAILY PRN Anxiety 10/10/23 09/18/24 09/17/24 History aspirin 81 mg tablet,delayed 81 mg PO DAILY 09/18/24 09/18/24 09/16/24 History release carvedilol 3.125 mg tablet 3.125 mg PO 09/18/24 09/17/24 History Exam Pertinent Lab Results Pertinent Lab Results: Laboratory Tests 10/23/23 05/27/24 09:39 09:45 WBC 4.5 L Hgb 12.6 Hct 39.6 Plt Count 205 Sodium 140 Potassium 3.8 Chloride 105 Carbon Dioxide 26 BUN 12 Creatinine 0.95 Narrative Narrative: ECGECG 12-Lead ? 15:08:38 Ventricular Rate: 62 BPM Atrial Rate: 62 BPM P-R Interval: 190 ms QRS Duration: 86 ms Q-T Interval: 412 ms QTC Calculation(Bazett): 418 ms P [place]: 12 degrees R [place]: 64 degrees T [place]: 109 degrees Normal sinus rhythm Septal infarct (cited on or before 17-AUG-2022) Possible Lateral infarct (cited on or before 16-AUG-2022) Abnormal ECG When compared with ECG of 19-JAN-2023 00:15, MS interval has decreased Inverted T waves have replaced nonspecific T wave abnormality in Lateral leads Confirmed by YOUSIF FUENTES ([id number]) on 04/22/2023 3:17:46 PM [place]: YOUSIF FUENTES ? Signed By: Yousif Fuentes MD ? ECG 12-Lead ? 15:08:38 Please click on pdf link to open report ? Signed By: Yousif Fuentes MD EchoEchocardiogram - Complete ? 09:44:48 Summary The left ventricle is upper limit of normal in size. Systolic function appears preserved. Wall motion was difficult to evaluate despite use of definity due to off axis imaging. However, there does appear to be wall motion abnormalities potentially in the apical and inferior quispe. Comparison Comparison is made to the study of August 06, 2022. Cath 2021 Conclusions Diagnostic Summary 62-year-old lady with acute onset chest pain more than 18 hours ago, started as a consequence of losing her son 2 days ago, chest pain completely resolved on arrival to [facility]. Elevated high-sensitivity troponin. Suspicious minimal lateral ST elevation and Q waves in aVL. Relatively low left ventricular filling pressures. LVEDP 5 mmHg. Normal systemic pressures. No significant gradient across aortic valve by catheter pullback from LV to aorta. Sinus tachycardia in the [facility]. Con angiogram showed mild diffuse disease of large dominant RCA. Large first diagonal branch had 100% occlusion in the midsegment. There is CRISTI 0 flow noted. A small subbranch is patent beyond the occlusion. This is likely culprit for patient's acute coronary syndrome. We cannot rule out a spontaneous dissection. It is unlikely due to coronary plaque rupture. Left main is angiographically normal. There is minimal luminal irregularities in large LAD and medium to large size LCx. Assessment and Plan Assessment Anesthesia Assessment: Chart Reviewed Final Anesthetic Review Family History of Problems with Anesthesia: No History of Problems with Anesthesia: No Documented by User: Heidi Hutchinson MD 09/18/24 13:05 HPI - Anesthesia Eval Consult details Narrative: 64yo F for Upper Endoscopy Follows [facility] Cardiology for hx NSTEMI 07/2022: possible spontaneous coronary dissection leading to non-ST elevation [place].? She had cardiac catheterization by us on August 16 of last year.? It showed 100% occlusion of first diagonal branch with CRISTI 0 flow.? Otherwise she had normal left main and mild diffuse disease of LCx and RCA and minimal disease in LAD Stable at 07/2024 office visit Addendum 09/18/24: Patient stated to pre-op nurse that she has had sore throat, chills and runny nose. No fever or malaise. On further questioning states went out in cold and resolved after hot shower. Lungs CTAB. Sats 98% room air. Will proceed. PMFSH Active Problems Active Problems: All Active Problems Right knee pain (Acute) Bradycardia (Acute) Sleep apnea (Acute) On CPAP Biliary colic (Acute) Cholelithiasis (Acute) Intermittent right upper quadrant abdominal pain (Acute) CAD. On baby aspirin. Last dose 2 days ago Past Medical History Medical History Pre-diabetes History of dysphagia Sleep apnea SVT (supraventricular tachycardia) Gastritis GERD (gastroesophageal reflux disease) Hepatitis C Achalasia Panic attacks Migraines Depression Anxiety Family History Family History Mother Cancer of unknown origin Maternal Uncle Cancer of unknown origin Family history of problems with anesthesia: No Surgical History Surgical History Hx of cholecystectomy (~09/2023) History of surgery Hx of colonoscopy Hx of cone biopsy of cervix History of esophagogastroduodenoscopy (EGD) H/O cardiac radiofrequency ablation History of Problems with Anesthesia: No Social History Social History Alcohol intake: current Alcohol intake frequency: does not drink Patient Tobacco Use Status: Former Tobacco user Cigarettes Per Day: 5 Years Smoked: 30 Have you been hit, kicked, punched, or otherwise hurt by someone within the past year? If so, by whom?: No Are you DNR?: No Advance Directives: No Advance Directives Information Provided: Yes Meds Allergies Allergy/AdvReac Type Severity Reaction Status Date / Time prochlorperazine AdvReac Unknown Verified 10/10/23 14:17 [From Compazine] Home Medications ?Medication ?Instructions ?Recorded ?Confirmed ?Last Taken ?Type pantoprazole 40 mg tablet,delayed 40 mg PO BEDTIME 09/19/20 09/18/24 09/17/24 History release acetaminophen 500 mg tablet 1 tab PO Q8H PRN Pain 06/12/21 09/18/24 09/11/24 History meclizine 25 mg tablet 1 tab PO DAILY PRN Dizziness 06/12/21 09/18/24 07/18/24 History atorvastatin 80 mg tablet 80 mg PO DAILY 10/10/23 09/18/24 09/16/24 History fluticasone propionate 50 1 - 2 spray intranasal BID 10/10/23 09/18/24 09/15/24 History mcg/actuation nasal spray,suspension lorazepam 0.5 mg tablet 0.5 mg PO DAILY PRN Anxiety 10/10/23 09/18/24 09/17/24 History aspirin 81 mg tablet,delayed 81 mg PO DAILY 09/18/24 09/18/24 09/16/24 History release carvedilol 3.125 mg tablet 3.125 mg PO 09/18/24 09/17/24 History Exam Height,Weight and Vital Signs: Height 5 ft 9 in Weight 99.79 kg Vital Signs Temp Pulse Resp BP Pulse Ox O2 Del Method 09/18/24 10:32 97.5 F 79 20 142/84 H 98 Room Air Pertinent Lab Results Pertinent Lab Results: Laboratory Tests 10/23/23 05/27/24 09:39 09:45 WBC 4.5 L Hgb 12.6 Hct 39.6 Plt Count 205 Sodium 140 Potassium 3.8 Chloride 105 Carbon Dioxide 26 BUN 12 Creatinine 0.95 Airway Mallampati Class: III TM Dist: >3cm Neck ROM: Full Loose/Missing/Broken Teeth: Yes (Several teeth missing. Denies broken or loose teeth) Heart: RRR Lungs: CTAB Assessment and Plan Assessment Anesthesia Assessment: Anesthesia Plan Discussed and Chart Reviewed Final Anesthetic Review Family History of Problems with Anesthesia: No History of Problems with Anesthesia: No NPO: Yes ASA Class: III Final Preanesthetic Review: No Changes in Pt Med Stat, Meds/Allgs Chart Reviewed, Consent Obtained/Reviewed and Anes Risks/Benef Reviewed Patient Risk: Intermediate Procedure Risk: Low Assessment/Block/Sedation in SS: Assess/Block/Sedation-SS Anesthetic Plan Anesthetic Plan: TIVA Disposition: Standard PACU
[2024-09-18 08:02] VITALS: BMI 32.5
[2024-09-18 10:32] VITALS: BP 142/84; PULSE 79; RESP 20; TEMP 36.4; O2SAT 98
[2024-09-18] MEDS: Lactated Ringers 1,000 ML 100 ML IVCONT (11:04)
--- NOTE | 2024-09-18 12:28 | PC.NURSE ---
pt doesnot take plavix she sts take carvedilol
[2024-09-18 13:08] VITALS: BP 108/65; PULSE 70; RESP 14; TEMP 36.2; O2SAT 98
--- NOTE | 2024-09-18 13:14 | PM.OP ---
Brief Operative Note Date of Service: 09/18/24 Pre-op diagnosis: GERD, Achalasia Post-op diagnosis: other (Same, Hiatal hernia) Procedure: EGD with biopsies Surgeon: Jefferson Ng MD Anesthesia: MAC Was an [employer] Educator used for this Procedure?: No Estimated blood loss (mL): 2.0 Pathology: other (A. EG Junction at 36cm) Condition: stable Disposition: PACU
[2024-09-18 13:20] VITALS: BP 120/76; PULSE 65; RESP 16; TEMP 36.3; O2SAT 98
--- NOTE | 2024-09-18 14:09 | OP_ITS ---
DATE OF SERVICE: 09/18/2024 SURGEON: Jefferson Ng MD INDICATIONS: The patient presents for evaluation of chronic gastroesophageal reflux in the setting of an underlying history of achalasia. Full consent has been obtained from her for this, including risks of bleeding and perforation. PREOPERATIVE DIAGNOSIS: POSTOPERATIVE DIAGNOSIS: PROCEDURE PERFORMED: Esophagogastroduodenoscopy with biopsies. ESTIMATED BLOOD LOSS: COMPLICATIONS: ANESTHESIA: Monitored anesthesia care. ASSISTANTS: SPECIMENS: PREOPERATIVE DIAGNOSES: Achalasia and reflux. POSTOPERATIVE DIAGNOSES: Achalasia, reflux, small hiatal hernia. DESCRIPTION OF PROCEDURE: The patient was placed in the left lateral decubitus position. The Olympus video gastroscope was passed in the posterior oropharynx and upper esophagus under direct vision. The scope was passed slowly to the distal esophagus. The esophagus itself appeared to be dilated, tortuous, and with significantly diminished peristalsis. However, there was no evidence of any retained liquid nor food. The gastroesophageal junction appeared at 36 cm. There was some minimal irregularity, but no evidence of any esophagitis nor Head's esophagus. There was a small hiatal hernia with some prolapse of gastric folds. There did appear to be evidence of a wrap of some sort based on the configuration of the gastric folds, but it did allow easy passage of the scope into the stomach and to the pylorus. The duodenum was cannulated to the descending portion. The duodenum including the bulb appeared normal without mass or ulceration. The scope was withdrawn back in the stomach. The gastric antrum and body appeared normal with good peristalsis. The scope was retroflexed, visualizing the proximal stomach carefully, which appeared normal, without any sign of mass or ulceration. Although even with insufflation of air, I could not see the underside of the gastroesophageal area completely in regard to visualization of the previous presumed wrap in relation to her previous achalasia surgery. The scope was straightened and withdrawn back in the esophagus. Biopsies were obtained at the EG junction at 36 cm. Proximal to this, the esophageal mucosa appeared normal. Again, there was diminished peristalsis and evidence of a dilated esophagus as well. The scope was withdrawn from the patient. She tolerated the procedure well and was returned to the recovery area in stable condition. IMPRESSION: 1. Gastroesophageal reflux. 2. Small hiatal hernia. 3. Underlying history of achalasia. PLAN: The patient has been instructed to continue her current regimen of the b.i.d. pantoprazole. She will be seen within 1 year for followup in the office both in regard to the reflux and to schedule her followup screening colonoscopy, which is due in 2025. She was advised not to use any aspirin for 48 hours and to stay off all NSAIDs for at least a week. MD ZULAY Dave/DESTINY / [id number] MTDD
== END 2024-09-18 13:45 | disposition home or self-care (01) ==
PROVIDERS: PCP Student in an Organized Health Care Education/Training Program; Visit Provider Internal Medicine
PROC: 0DJ08ZZ Inspection of Upper Intestinal Tract, Via Natural or Artificial Opening Endoscopic (ICD-10-PCS; CPT 43235; principal; 2024-09-18 11:40)
DX: K22.0 Achalasia of cardia (principal); K21.9 Gastro-esophageal reflux disease without esophagitis; R10.11 Right upper quadrant pain; K44.9 Diaphragmatic hernia without obstruction or gangrene; K22.89 Other specified disease of esophagus; Z86.19 Personal history of other infectious and parasitic diseases; I10 Essential (primary) hypertension; R73.03 Prediabetes; G43.909 Migraine, unspecified, not intractable, without status migrainosus; F32.A Depression, unspecified; F41.9 Anxiety disorder, unspecified; F41.0 Panic disorder [episodic paroxysmal anxiety]; Z79.899 Other long term (current) drug therapy; Z79.82 Long term (current) use of aspirin; Z88.8 Allergy status to other drugs, medicaments and biological substances; Z91.041 Radiographic dye allergy status; Z98.890 Other specified postprocedural states; Z90.49 Acquired absence of other specified parts of digestive tract; Z87.891 Personal history of nicotine dependence
CPT/HCPCS: 43239; 88305; 88313; J2003; J2704